=== PATIENT | female | born 1950 | race Caucasian/White ===

== ENCOUNTER 2018-01-18 22:47 | Inpatient (IN) | payer OTHER ==
[~2018-01-18] VITALS: Ht 167.6 cm; Wt 88.0 kg
[2018-01-18 22:48] VITALS: BP 148/68
[2018-01-18 23:08] LABS: ABSOLUTE BASOPHILS 0.1 thou/uL (0.0-0.2); ABSOLUTE EOSINOPHILS 0.3 thou/uL (0.0-0.7); ABSOLUTE LYMPHOCYTES 4.2 thou/uL (0.8-5.3); ABSOLUTE MONOCYTES 0.6 thou/uL (0.0-1.2); ABSOLUTE NEUTROPHILS 8.6 thou/uL (1.6-8.1); BASOPHILS 0.7 %; HEMATOCRIT 40.6 % (37.0-47.0); HEMOGLOBIN 13.1 gm/dL (12.0-15.0); LYMPHOCYTES 30.2 %; MCH 28.3 pg (26.0-34.0); MCHC 32.3 g/dL (28.0-37.0); MCV 87.5 fL (80.0-100.0); MONOCYTES 4.7 %; MPV 10.2 fl. (7.2-11.1); NUCLEATED RBCS 0 /100WBC; PLATELET COUNT* 304 thou/uL (150-400); POLYS 62.4 %; RBC 4.64 mil/uL (4.20-5.00); RDW-CV 14.6 % (10.5-14.5); WBC 13.8 thou/uL (4.0-11.0)
[2018-01-18 23:14] LABS: INR 1.1; PROTIME 10.9 Seconds (9.20-11.50)
[2018-01-18 23:23] LABS: BE -9.6 mmol/L (-2 to +3); HCO3 18.7 mmol/L (22.0-26.0)
[2018-01-18 23:24] LABS: PCO2 50.3 mmHg (35.0-45.0); pH 7.187 (7.340-7.450)
[2018-01-18 23:31] LABS: CALCIUM 7.9 mg/dL (8.5-10.1); CREATININE 1.3 mg/dL (0.6-1.3); POTASSIUM 3.9 mmol/L (3.5-5.1)
[2018-01-18 23:34] LABS: ALBUMIN 3.2 g/dL (3.4-5.0); TOTAL BILIRUBIN 0.3 mg/dL (<0.1-1.0); TOTAL PROTEIN 6.9 g/dL (6.4-8.2); TROPONIN-I LEVEL 0.3 ng/mL (<0.06)
[2018-01-19] VITALS (19 sets, daily range): BP systolic 83–227; BP diastolic 46–127
[2018-01-19 00:06] LABS: URINE BILIRUBIN NEGATIVE (Negative); URINE BLOOD 2+ (Negative); URINE CLARITY CLEAR; URINE COLOR YELLOW; URINE GLUCOSE-RANDOM 1+ (Negative); URINE KETONES NEGATIVE (Negative); URINE LEUKOCYTES-REFLEX NEGATIVE (Negative); URINE NITRITE-REFLEX NEGATIVE (Negative); URINE PROTEIN 3+ (Negative); URINE SPECIFIC GRAVITY >= 1.030 (1.005-1.030); URINE UROBILINOGEN 0.2 E.U./dl (0.2-1.0)
[2018-01-19 00:29] LABS: CASTS None Seen /LPF (None Seen); SQUAMOUS 4-10 Moderate /LPF (0-3); URINE WBC-REFLEX 0-5 Rare /HPF (0-5)
[2018-01-19 00:30] LABS: URINE RBC 3-10 Few /HPF (0-2)
[2018-01-19 00:31] LABS: CRYSTALS None Seen /LPF (None Seen)
[2018-01-19 05:11] LABS: BE -2.7 mmol/L (-2 to +3); HCO3 21.5 mmol/L (22.0-26.0); PCO2 35.2 mmHg (35.0-45.0); pH 7.403 (7.340-7.450)
[2018-01-19 05:13] LABS: PO2 216.3 mmHg (75.0-100.0)
[2018-01-19 07:23] LABS: HEMATOCRIT 37.5 % (37.0-47.0); HEMOGLOBIN 12.1 gm/dL (12.0-15.0); MCH 27.3 pg (26.0-34.0); MCHC 32.2 g/dL (28.0-37.0); MCV 84.8 fL (80.0-100.0); MPV 9.3 fl. (7.2-11.1); RBC 4.41 mil/uL (4.20-5.00); RDW-CV 14.6 % (10.5-14.5); WBC 17.1 thou/uL (4.0-11.0)
[2018-01-19 07:47] LABS: ALBUMIN 3.1 g/dL (3.4-5.0); POTASSIUM 3.4 mmol/L (3.5-5.1); TOTAL BILIRUBIN 0.4 mg/dL (<0.1-1.0); TOTAL PROTEIN 6.5 g/dL (6.4-8.2)
[2018-01-19 07:50] LABS: CHOLESTEROL 190 mg/dL (<200); HDL CHOLESTEROL 45 mg/dL (>40); LDL CHOLESTEROL 132 mg/dL (<100); SERUM ASSESSMENT Clear; TC:HDL 4.2 Ratio (Not establshd); TRIGLYCERIDE 66 mg/dL (<150); VLDL 13 mg/dL (<40)
[2018-01-19 08:33] LABS: BE 0.6 mmol/L (-2 to +3); HCO3 24.8 mmol/L (22.0-26.0); PCO2 38.7 mmHg (35.0-45.0); PO2 72.9 mmHg (75.0-100.0); pH 7.425 (7.340-7.450)
--- NOTE | 2018-01-19 09:25 | CON ---
[address] [address] CONSULTATION Name: FAISAL DE LA ROSA Room: [address] IN M.R.#: [id number] Admission: 01/19/18 Attend Phys: Alex Ricehy MD Discharge: Date of : 48 Report #: [id number] THIS REPORT FOR: //name// CC: RENALDO physician/PCP Alex Richey REASON FOR CONSULTATION: Respiratory failure. HISTORY OF PRESENT ILLNESS: The patient was intubated during my evaluation, although she was awake, responsive and following commands. I reviewed the medical record. The patient did not participate in the history. She was admitted through the ER when she was admitted with respiratory failure. Per the notes in the records, when the EMS arrived to the scene she was in respiratory distress. Apparently, she was eating dinner and she had sudden onset of shortness of breath and she reported that she had difficulty breathing. She sat still and was short of breath. She went to the bathroom and came back with increasing shortness of breath, 911 was called and when they arrived she was lying down unconscious. The patient has been reported that she was breathing and apparently CPR started per the when the EMS arrived. Reported that she had a pulse, but with agonal breathing and all the way she had a pulse. She was intubated en route. Per the record, she has no history of trauma or seizures. It was felt probably she had seizure precipitating the event. When I saw the patient, she was awake, alert, off sedation, moving head right and left, responding to commands, looking comfortable on the vent, although she was on assist control ventilation. No significant secretion with her RT. PAST MEDICAL HISTORY: No known chronic medical problems. PAST SURGICAL HISTORY: None. ALLERGIES: No known drug allergies. FAMILY HISTORY: Not obtainable. SOCIAL HISTORY: No history of smoking, drug abuse or alcohol abuse. REVIEW OF SYSTEMS: Unobtainable at this point. HOME MEDICATIONS: Apparently, she is not on any chronic medication at home. PHYSICAL EXAMINATION: VITAL SIGNS: She was on the vent, awake, alert, responding to command with saturation on the monitor 100%, breathing 16 times a minute on the vent, pulse rate 71 and afebrile. GENERAL: Well-nourished lady, not in distress. HEENT: Head is normocephalic and atraumatic. Pupils [place] [address] CONSULTATION Name: RJFAISAL Room: [address]#: [id number] Admission: 01/19/18 Attend Phys: Alex Richey MD Discharge: Date of : 48 Report #: [id number] External ear looks healthy and normal. Oral cavity: Moist mucous membrane with ET tube in place. NECK: Supple. CHEST: Actually symmetrical expansion. Good air movement. No wheezes, no crackles, no added sounds. HEART: S1 and S2, no murmur. ABDOMEN: Benign, soft, lax, nontender, positive bowel sounds. LOWER EXTREMITY: Trace edema, no calf tenderness. SKIN: Normal for age and race. PSYCHIATRIC: Mood and affect could not be evaluated. NEUROLOGIC: She was moving four extremities spontaneously. LABORATORY DATA: Her recent ABG 7.40/35/260 and this was done on assist control ventilation, 70% FiO2. Initially her ABGs upon arrival to the ER was 7.18/50/213. Her BNP was elevated. Her white blood count is 13.8, hemoglobin 15.1 and platelets 304. INR is 1.1. D-dimer was elevated. She had the chest x-ray that showed some cardiomegaly with small lung volumes and signs of vascular congestion. Her CT of the chest showed cardiomegaly with vascular congestion and small bilateral effusion with atelectasis and no PE. IMPRESSION: 1. Acute hypoxemic respiratory failure. 2. Mental status changes, improved. 3. Possible seizure. 4. Hypertensive urgency. PLAN: At this point, the patient is on Cardene drip. I agree with the diuresis keeping her in negative fluid balance and we will check an echo. She will be on scheduled nebulization treatment. She is on DVT prophylaxis and it was noted that she is on potassium replacement protocol. Weaning trial will be done today and depending on the results, we will decide further plans for extubation if she does well. Thank you for the consult. <ELECTRONICALLY SIGNED> By: Alexandria Ayala MD 01/19/18 0925 0735 [id number] Ayala MD /nt
--- NOTE | 2018-01-19 12:24 | EKG ---
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 : 1950 Requested By: Chasidy Soler Order Number: [id number] MD: Shaggy Fitch Measurements Intervals [place] Rate: 104 P: 81 TN: 149 QRS: 18 QRSD: 97 T: 78 QT: 394 QTc: 519 Interpretive Statements Sinus tachycardia Probable left atrial enlargement Left ventricular hypertrophy Prolonged QT interval No previous ECG available for comparison Electronically Signed On 01-19-2018 12:24:20 CDT by Shaggy Fitch [email or web address] <ELECTRONICALLY SIGNED> By: Shaggy Fitch MD, [facility] 01/19/18 1224 50 50 Shaggy Fitch MD, FACC /EPI
--- NOTE | 2018-01-19 12:25 | EKG ---
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
--- NOTE | 2018-01-19 12:27 | EKG ---
[place] [address] ELECTROCARDIOGRAM REPORT Name: FAISAL DE LA ROSA Room: [address] ADM IN .R.#: [id number] Admission: 01/19/18 Attend Phys: Alex Richey MD Discharge: Date of : 48 Report #: [id number] THIS REPORT FOR: //name// [facility] Test Date: 2018-01-19 Test Time: 09:30:16 Pat Name: FAISAL DE LA ROSA Department: Room: [address] Gender: F [employer]: [facility] : 1950 Requested By: Kurtis Hatch Order Number: [id number] Melissa MD: Shaggy Fitch Measurements Intervals [place] Rate: 89 P: 3 [place]: 152 QRS: -1 QRSD: 91 T: 89 QT: 366 QTc: 446 Interpretive Statements Sinus rhythm Left ventricular hypertrophy with repolarization change Electronically Signed On 01-19-2018 12:26:47 CDT by Shaggy Fitch [email or web address] <ELECTRONICALLY SIGNED> By: Shaggy Fitch MD, [facility] 01/19/18 1226 0930 0930 Shaggy Fitch MD, FACC /EPI
--- NOTE | 2018-01-19 14:23 | 2DMMODE ---
[place] [address] 2 D/M-MODE ECHOCARDIOGRAM Name: FAISAL DE LA ROSA Room: [address] IN [facility]#: [id number] Admission: 01/19/18 Attend Phys: Alex Richey, Discharge: Date of : 48 Date of Service: 01/19/18 1423 Report #: [id number] THIS REPORT FOR: //name// APPROVED REPORT Study performed: 01/19/2018 10:10:49 EXAM: Comprehensive 2D, Doppler, and color-flow Echocardiogram Patient Location: In-Patient Room #: [facility] BSA: 1.89 HR: 71 bpm BP: 98/56 mmHg Other Information Study Quality: Adequate Indications Syncope 2D Dimensions LVEF(%): 36.35 (>50%) IVSd: 12.49 (7-11mm) LVOT Diam: 20.73 (18-24mm) LVDd: 59.84 mm PWd: 13.42 (7-11mm) Ascending Ao: 30.56 (22-36mm) LVDs: 49.20 (25-40mm) Aortic Root: 24.45 mm Tidwell's LVEF: 36.35 % Volumes Left Atrial Volume (Systole) LA ESV Index: 25.60 mL/m2 Aortic Valve AoV Peak Ash.: 1.61 m/s AO Peak Gr.: 10.33 mmHg LVOT Max P.95 mmHg AO Mean Gr.: 5.97 mmHg LVOT Mean P.96 mmHg LVOT Max V: 0.70 m/s AO V2 VTI: 23.15 cm LVOT Mean V: 0.45 m/s AMBROCIO (VTI): 1.51 cm2 LVOT V1 VTI: 10.33 cm Mitral Valve E/A Ratio: 0.84 MV Decel. Time: 198.91 [place] [address] 2 D/M-MODE ECHOCARDIOGRAM Name: FAISAL DE LA ROSA Room: [address] IN .R.#: [id number] Admission: 01/19/18 Attend Phys: Alex Richey, Discharge: Date of : 48 Date of Service: 01/19/18 1423 Report #: [id number] MV E Max Ash.: 0.75 m/s MV PHT: 57.68 ms MVA (PHT): 3.81 cm2 TDI E/Lateral E': 12.50 E/Medial E': 9.38 Medial E' Ash.: 0.08 m/s Lateral E' Ash.: 0.06 m/s Pulmonary Valve PV Peak Ash.: 0.97 m/s PV Peak Gr.: 3.75 mmHg Tricuspid Valve TR Peak Gr.: 16.66 mmHg RVSP: 21.66 mmHg Left Ventricle Left ventricle is mildly dilated. There is global hypokinesis of the left ventricle. Mild concentric left ventricular hypertrophy. Left ventricular systolic function is moderately decreased. LVEF is 30-35%. Grade I - abnormal relaxation pattern. Right Ventricle The right ventricle is normal size. The right ventricular systolic function is normal. Atria The left atrium size is normal. The right atrium size is normal. Aortic Valve The aortic valve is normal in structure. No aortic regurgitation is present. There is no aortic valvular stenosis. Mitral Valve There is mild mitral annular calcification. Mild mitral regurgitation. No evidence of mitral valve stenosis. Tricuspid Valve The tricuspid valve is normal in structure. Mild tricuspid regurgitation. The RVSP is __21.7 mmHg. Pulmonic Valve Pulmonic valve is not well visualized. There is no pulmonic valvular regurgitation[place] [address] 2 D/M-MODE ECHOCARDIOGRAM Name: FAISAL DE LA ROSA Room: [address] IN [facility]#: [id number] Admission: 01/19/18 Attend Phys: Alex Richey, Discharge: Date of : 48 Date of Service: 01/19/18 1423 Report #: [id number] The aortic root is normal in size. IVC is not well visualized. Pericardium Trace pericardial effusion. <Conclusion> Left ventricle is mildly dilated. Mild concentric left ventricular hypertrophy. LVEF is 30-35%. Mild mitral regurgitation. <ELECTRONICALLY SIGNED> By: Shaggy Fitch MD, FACC 01/19/18 1423 22 142 Shaggy Fitch MD, FACC /INF
--- NOTE | 2018-01-19 17:47 | CON ---
[address] [address] CONSULTATION Name: FAISAL DE LA ROSA Room: [address] IN M.R.#: [id number] Admission: 01/19/18 Attend Phys: Alex Richey MD Discharge: Date of : 48 Report #: [id number] THIS REPORT FOR: //name// CC: RENALDO physician/PCP Alex Richey DATE OF SERVICE: 01/19/2018 HISTORY OF PRESENT ILLNESS: The patient is a 67-year-old white female who I was asked to see in the hospital today after she suffered a respiratory failure. The history is obtained from the patient's who is present. The patient is currently intubated. There are no old records. According to , she does not exercise on a regular basis. She has no previous history of heart disease. Recently, she has had a cough and felt congested. She was working yesterday and got home last night. They had dinner. She then complained of being short of breath. An ambulance was called. According to the , she became unresponsive before the ambulance arrived. The apparently started CPR. When the paramedics arrived, they apparently did feel a pulse, but she had agonal breathing. The patient apparently was intubated by paramedics. She was then brought to the emergency room. She was admitted to the ICU. I was asked to see her for further evaluation and treatment. According to the , the patient has had no recent chest pain, palpitations, syncope. She has had no significant edema. PAST MEDICAL HISTORY: She apparently had a hysterectomy, but no history of hypertension or diabetes. MEDICATIONS: She is on no medications. ALLERGIES: She has no known drug allergies. FAMILY HISTORY: Negative for heart disease. SOCIAL HISTORY: She is . She and her live here in [place]. 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 No smoking or alcohol abuse. REVIEW OF SYSTEMS: She has had no history of stroke, asthma, peptic ulcer disease, liver disease, kidney disease, cancer, psychiatric illness, or chronic skin condition. PHYSICAL EXAMINATION: GENERAL: Revealed a middle-aged female, lying in bed, she is on a ventilator. VITAL SIGNS: She had a blood pressure of 120/70, pulse is 70. She was afebrile. HEENT: She was anicteric. Conjunctivae are pink. Mucous members appear moist. NECK: Veins [place] [address] CONSULTATION Name: FAISAL DE LA ROSA Room: [address]#: [id number] Admission: 01/19/18 Attend Phys: Alex Richey MD Discharge: Date of : 48 Report #: [id number] CHEST: Clear to auscultation. HEART: Regular rate and rhythm. ABDOMEN: Soft. EXTREMITIES: Had no edema. Posterior tibial pulse 1+ bilaterally. SKIN: Cool and dry. NEUROLOGIC: She is able to move all extremities to voice. ECG showed a sinus rhythm, left ventricular hypertrophy, nonspecific T-wave changes. Her workup last night, she had a portable chest x-ray on admission that showed endotracheal tube in good position, bilateral interstitial infiltrates. She had additional x-rays included a CT scan of the head without contrast that showed minimal microvascular changes. CT scan of the chest using a PE protocol showed cardiomegaly, vascular congestion. Her lab work, sodium 145, creatinine 1.0, glucose is 81. Troponin 0.36. BNP 2569. Cholesterol 190, triglyceride 66, HDL 45, LDL 132. White blood cell count 17.1, hemoglobin 12.1. IMPRESSION AND RECOMMENDATIONS: 1. Acute pulmonary edema. Recommend Lasix. Check echocardiogram. 2. Borderline troponin. No history of angina. Recommend echocardiogram. 3. Elevated blood pressure. I would start blood pressure medications. 4. Acute respiratory failure. The patient went into acute pulmonary edema. 5. Elevated blood sugar. Rule out diabetes. <ELECTRONICALLY SIGNED> By: Shaggy Fitch MD, FACC 01/19/18 1747 0818 0930Datrupti Fitch MD, FACC /nt
[2018-01-20] VITALS (10 sets, daily range): BP systolic 106–138; BP diastolic 46–71
[2018-01-20 06:10] LABS: CALCIUM 8.4 mg/dL (8.5-10.1); CREATININE 1.1 mg/dL (0.6-1.3); POTASSIUM 3.4 mmol/L (3.5-5.1)
--- NOTE | 2018-01-20 10:56 | EKG ---
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 01/20/18 1056 0834 0834 Shaggy Fitch MD, [facility] /EPI
[2018-01-21] VITALS (13 sets, daily range): BP systolic 130–157; BP diastolic 60–87
[2018-01-21 05:34] LABS: HEMATOCRIT 34.2 % (37.0-47.0); HEMOGLOBIN 11.7 gm/dL (12.0-15.0); MCH 28.8 pg (26.0-34.0); MCHC 34.2 g/dL (28.0-37.0); MCV 84.5 fL (80.0-100.0); RBC 4.04 mil/uL (4.20-5.00); RDW-CV 14.7 % (10.5-14.5); WBC 9.7 thou/uL (4.0-11.0)
[2018-01-21 05:56] LABS: CALCIUM 8.7 mg/dL (8.5-10.1); CREATININE 0.9 mg/dL (0.6-1.3); MAGNESIUM 1.9 mg/dL (1.8-2.4); POTASSIUM 4.1 mmol/L (3.5-5.1)
--- NOTE | 2018-01-21 17:35 | CARD ---
[address] [address] CARDIAC CATH REPORT Name: FAISAL DE LA ROSA Room: [address] IN ..#: [id number] Admission: 01/19/18 Attend Phys: Alex Richey MD Discharge: Date of : 48 Report #: [id number] THIS REPORT FOR: //name// APPROVED REPORT Study performed: 01/21/2018 13:31:33 Patient Details Patient Status: In-Patient Room #: The patient is a 67 year-old female Event Personnel Cynthia Dial RN RN, Eric Bishop (Sheri) Elena Bailey Angela Monitor, Shaggy Fitch Audit Lead Procedures Performed cath Indication Dyspnea, Heart failure, Cardiomyopathy Risk Factors Arterial Hypertension Admission/Lab Medications/Medications given during procedure Heparin Unfract. Procedure Narrative The patient was brought electively to the Cardiac Catheterization Laboratory and was prepped and draped in a sterile manner. The right wrist was infiltrated with 1% Lidocaine subcutaneous anesthesia. A 6 fr sheath was inserted into the right radial artery. Coronary angiography was performed using coronary diagnostic catheters. The right coronary system was accessed and visualized with a Diagnostic catheter. The left coronary system was accessed and visualized with a Diagnostic catheter. The left ventricle was accessed and visualized with a Diagnostic catheter. Left ventricular/Aortic Valve gradient assessed via catheter pullback. Left ventriculogram was performed in KIMBROUGH projection. Closure device was deployed with a 6 Fr vascband. The patient tolerated the procedure well and there were no complications associated with the procedure. There was no hematoma. Intraoperative Conscious Sedation Sedation start time: 1410 Case end Time: [address] [address] CARDIAC CATH REPORT Name: FAISAL DE LA ROSA Room: [address] IN [facility]#: [id number] Admission: 01/19/18 Attend Phys: Alex Richey MD Discharge: Date of : 48 Report #: [id number] Versed 1 mg Dose: 878.45 878.45 mGy Contrast Type and Amount: Visipaque 185 ml Coronary Angiography The patient's coronary anatomy is right dominant. [place] Artery Percent Stenosis Left Main: 0 % Prox LAD: 0 % Mid/Distal LAD: 0 % Circumflex: 0 % RCA: 0 % Ramus: % Left Ventriculography The left ventricular ejection fraction is estimated to be 25-30%. There is 1+ mitral insufficiency. Hemodynamics The left ventricular end diastolic pressure is 10 mmHg. There was no gradient across the aortic valve upon pullback. Pullback from the left ventricle to the aorta revealed no gradient across the aortic valve. Conclusion 1. nonischemic cardiomyopathy Recommendations 1. recommend life vest <ELECTRONICALLY SIGNED> By: Shaggy Fitch MD, [facility] 01/21/18 1735 D: 03/5 1735Datrupti Fitch MD, FACC /INF
[2018-01-22] VITALS: BP 128/63
[2018-01-22 04:00] VITALS: BP 136/68
[2018-01-22 06:01] LABS: CALCIUM 8.9 mg/dL (8.5-10.1); CREATININE 1.1 mg/dL (0.6-1.3); MAGNESIUM 1.9 mg/dL (1.8-2.4); POTASSIUM 3.9 mmol/L (3.5-5.1)
[2018-01-22 09:22] VITALS: BP 146/80
[2018-01-22 12:00] VITALS: BP 99/70
[2018-01-22] MEDS ORDERED: LISINOPRIL5 MG PO (15:10)
[2018-01-22] MEDS ORDERED: LASIX 40 MG TAB40 M2 PO ×2 (15:12→15:13)
[2018-01-22] MEDS ORDERED: CARVEDILOL3.125 MG PO (15:15)
[2018-01-22] MEDS ORDERED: ALDACTONE25 MG PO (15:16)
[2018-01-22] MEDS ORDERED: ASPIR 8181 MG PO (15:17)
[2018-01-22] MEDS ORDERED: TYLENOL325 MG PO (15:18)
[2018-01-22] MEDS ORDERED: LEVAQUIN 750 M750 MG PO (15:37)
--- NOTE | 2018-01-29 19:10 | CON ---
[address] [address] CONSULTATION Name: FAISAL DE LA ROSA Room: [address] IN M.R.#: [id number] Admission: 01/19/18 Attend Phys: Alex Richey MD Discharge: 01/22/18 Date of : 48 Report #: [id number] THIS REPORT FOR: //name// CC: Alex Kaur DATE OF SERVICE: 01/19/2018 HISTORY OF PRESENT ILLNESS: This is a 67-year-old female patient for whom I talked to the nurses looking after this patient last night and this morning. I talked to Dr. Richey. This patient's consultation was requested because the patient was noticed to have some seizure-like activity on the right side, but since then the patient has done reasonably well and in fact has gotten up and is moving all 4 extremities. REVIEW OF SYSTEMS: Indicate that this patient had shortness of breath. There was some problem with breathing. CPR was started. Apparently when the EMS arrived this patient did have a pulse at that time. She was intubated and since then she has been extubated. It looks like there was a lot of breathing difficulty when it happened. REVIEW OF SYSTEMS: Mostly from the records at the moment, but we will try to talk to the . Those records were reviewed. The best I can tell from the record she did not have this kind of symptom before and is relatively healthy. When she came in she did have a CT scan of the head and that does not show much abnormality. When she came in, her blood pressure was somewhat high at 148/68, at one time her blood pressure was 227. It has fluctuated a lot. I tried to do the 14-point review of system and that looks noncontributory, but I will also try to reach the patient's . PAST MEDICAL HISTORY: Mostly unremarkable. FAMILY HISTORY: Unable to obtain. SOCIAL HISTORY: From the record, it looks like she does not smoke or drink any alcohol. PHYSICAL EXAMINATION: Indicate she is alert. She is able to follow simple commands. Her eyes are very red. She does not open the right eye. With the left eye she can see. She moves all 4 extremities. Her cooperation is not good enough to do a detailed neurological examination, which we will do some other time. She is reasonably well-developed individual. Her hearing looks intact. LABORATORY DATA: Indicate a white count of 17.1, potassium is 3.4. Calcium is 8.0. Troponin is 0.36. [place]SH [place] [address] CONSULTATION Name: FAISAL DE LA ROSA Room: [address]#: [id number] Admission: 01/19/18 Attend Phys: Alex Richey MD Discharge: 01/22/18 Date of : 48 Report #: [id number] IMPRESSION AND PLAN: This seizure-like activity is worrisome, but the patient is not actively seizing and her EEG looks unremarkable, but the whole story needs further workup. I would like to do an MRI of the brain and MRA once she become somewhat more cooperative, hopefully later on during the day to make sure there is no central nervous system problems like aneurysms, but she also needs a pretty extensive systemic workup to see what all started this. I think doing the spinal tap to look for any subarachnoid hemorrhage will be difficult at this moment because the patient is still not cooperative, but I would like to get an MRI and MRA done pretty soon after talking to the patient's and the nurses to make sure there is no EXPLOSIVE EXPERT cause for her symptoms. Thank you very much for this referral. I might mention EXPLOSIVE EXPERT cause is less likely because they usually give rise to cardiac arrest and this patient looks like had a respiratory arrest, but I think we should exclude that. <ELECTRONICALLY SIGNED> By: Kurtis Hatch MD 01/29/18 1910 0932 1154Pmigdalia Hatch MD /nt
--- NOTE | 2018-01-29 19:10 | EEG ---
[address] [address] EEG STUDY REPORT Name: FAISAL DE LA ROSA Room: [address] IN .R.#: [id number] Admission: 01/19/18 Attend Phys: Alex Richey MD Discharge: 01/22/18 Date of : 48 Report #: [id number] THIS REPORT FOR: //name// CC: Alex Hernandez [facility] DATE OF SERVICE: 01/19/2018 This patient has history suggestive of possible seizure. EEG was done to further evaluate that. EEG was done by placing the electrodes by standard 10/20 system of electrode placement. Both referential and sequential montages were used for recording. Background activity in this patient's EEG is about 8-9 Hz and 30 microvolt. Photic stimulation is unremarkable. The patient is sedated on propofol and is very difficult to tell when this patient is asleep because EEG looks about the same. Throughout the record, no active epileptiform activity was noticed. IMPRESSION: In spite of being on propofol, this patient's EEG is mostly unremarkable. Thank you very much for this referral. <ELECTRONICALLY SIGNED> By: Kurtis Hatch MD 01/29/18 1910 1554 1601Pmigdalia Hatch MD /nt
== END 2018-01-22 15:45 | disposition home or self-care (01) | DRG 208 ==
LOC: M.ERS 22:47 → EDBD 22:47 → M.TBA-ER 01-19 00:31 → M.ICU 01-19 00:31 → M.2W 01-19 00:31 → M.ICU 01-19 00:41 → M.2W 01-20 15:51
PROVIDERS: Emergency Medicine; Internal Medicine Cardiovascular Disease; Psychiatry & Neurology Neuromuscular Medicine; ADMIT Internal Medicine
PROC: 5A1935Z Respiratory Ventilation, Less than 24 Consecutive Hours (ICD-10-PCS; 2018-01-19)
PROC: 0BH17EZ Insertion of Endotracheal Airway into Trachea, Via Natural or Artificial Opening (ICD-10-PCS; 2018-01-19)
PROC: 4A023N7 Measurement of Cardiac Sampling and Pressure, Left Heart, Percutaneous Approach (ICD-10-PCS; principal; 2018-01-21)
PROC: B2111ZZ Fluoroscopy of Multiple Coronary Arteries using Low Osmolar Contrast (ICD-10-PCS; 2018-01-21)
PROC: B2151ZZ Fluoroscopy of Left Heart using Low Osmolar Contrast (ICD-10-PCS; 2018-01-21)
DX: J69.0 Pneumonitis due to inhalation of food and vomit (principal); I46.9 Cardiac arrest, cause unspecified; I50.23 Acute on chronic systolic (congestive) heart failure; G92 Toxic encephalopathy; J96.02 Acute respiratory failure with hypercapnia; J96.01 Acute respiratory failure with hypoxia; I42.9 Cardiomyopathy, unspecified; R65.10 Systemic inflammatory response syndrome (SIRS) of non-infectious origin without acute organ dysfunction; I16.0 Hypertensive urgency; E78.5 Hyperlipidemia, unspecified; I11.0 Hypertensive heart disease with heart failure; Z90.710 Acquired absence of both cervix and uterus

== ENCOUNTER → 2018-02-06 | Outpatient (CLI) | payer OTHER ==
[~2018-02-06] MED LIST: ALDACTONE25 MG PO; ASPIR 8181 MG PO; CARVEDILOL3.125 MG PO; LASIX 40 MG TAB40 M2 PO; LEVAQUIN 750 M750 MG PO; LISINOPRIL5 MG PO; TYLENOL325 MG PO
[2018-02-06 18:17] LABS: CREATININE 0.9 mg/dL (0.6-1.3); POTASSIUM 4.1 mmol/L (3.5-5.1)
== END ==
LOC: M.LAB 17:42
PROVIDERS: Nurse Practitioner
DX: I42.8 Other cardiomyopathies (principal); I50.20 Unspecified systolic (congestive) heart failure

== ENCOUNTER → 2018-03-04 | Outpatient (CLI) | payer OTHER ==
[2018-03-04 09:34] LABS: CALCIUM 8.8 mg/dL (8.5-10.1); CREATININE 0.9 mg/dL (0.6-1.3); POTASSIUM 4.3 mmol/L (3.5-5.1)
== END ==
LOC: M.LAB 09:10
PROVIDERS: Nurse Practitioner
DX: I11.0 Hypertensive heart disease with heart failure (principal); I50.20 Unspecified systolic (congestive) heart failure; I42.8 Other cardiomyopathies

== ENCOUNTER → 2018-05-08 | Outpatient (CLI) | payer OTHER | LOC: M.LAB 09:38 | DX: E03.8 Other specified hypothyroidism (principal) ==